=== PATIENT | male | born 1950 | race Caucasian/White ===

== ENCOUNTER 2019-06-24 06:14 | Inpatient (IN) ==
[~2019-06-24 06:14] MED LIST: Bacitracin 50,000 UNIT, Polymyxin B Sulfate 500,000 UNIT, Sodium Chloride IRRigation 1,... IR ONE
[2019-06-24] MEDS ORDERED: CeFAZolin Syr 2,000MG/20 ML 2,000 MG/20 ML SYRINGE IVPB ONE (06:46)
[2019-06-24] MEDS ORDERED: Ringers Solution, Lactated 1,000 ML IVC SCH (07:00)
[2019-06-24] MEDS ORDERED: Ondansetron 4 MG/2 ML VIAL ONE (07:02)
[2019-06-24] MEDS ORDERED: *HR* Succinylcholine 200 MG/10 ML VIAL IVP ONE (07:02)
[2019-06-24] MEDS ORDERED: Lidocaine -MPF 2% 2 ML VIAL ONE (07:02)
[2019-06-24] MEDS ORDERED: *HR* Propofol 200 MG/20 ML VIAL IVP ONE (07:03)
[2019-06-24] MEDS ORDERED: *HR* FentaNYL (PF) 100 MCG/2 ML VIAL ONE (07:03)
[2019-06-24] MEDS ORDERED: Dexamethasone 4 MG/ML VIAL ONE (07:10)
[2019-06-24] MEDS ORDERED: Lidocaine -MPF 4% 5 ML AMPUL ONE (07:10)
[2019-06-24] MEDS ORDERED: Dexmedetomidine HCl 400 MCG/100 ML MLS IVC ONE (07:29)
[2019-06-24] MEDS ORDERED: *HR* Magnesium Sulfate 1 GM/2 ML VIAL ONE (07:35)
[2019-06-24] MEDS ORDERED: Acetaminophen IV 1,000 MG/100 ML INFUS..BTL IVPB ONE (07:35)
[2019-06-24] MEDS ORDERED: *HR* HYDROmorphone PF 0.5 MG/0.5 ML SYRINGE IVP PRN (07:55)
[2019-06-24] MEDS ORDERED: *HR* Meperidine 25 MG/ML SYRINGE IVP PRN (07:55)
[2019-06-24] MEDS ORDERED: Ondansetron 4 MG/2 ML VIAL IVP ONE (07:55)
[2019-06-24] MEDS ORDERED: Lidocaine Jelly 6ml 1 APPL/6 ML JEL.PF.APP ONE (09:05)
[2019-06-24] MEDS ORDERED: *HR* Labetalol 20 MG/4 ML SYRINGE IVP ONE (10:04)
[2019-06-24] MEDS ORDERED: *HR* HYDROMORPHONE 2 MG/ML VIAL ONE (11:10)
[2019-06-24] MEDS ORDERED: Acetaminophen 325 MG TABLET PO PRN (15:29)
[2019-06-24] MEDS ORDERED: SEMAGLUTIDE 0.5 MG SQ SCH (15:29)
[2019-06-24] MEDS ORDERED: Ondansetron 4 MG/2 ML VIAL IVP PRN (15:29)
[2019-06-24] MEDS ORDERED: *HR* HYDROcodone/Acet 5/325 mg TABLET PO PRN (15:29)
[2019-06-24] MEDS ORDERED: Naloxone 0.4 MG/ML INJ IVP PRN (15:29)
[2019-06-24] MEDS ORDERED: Budesonide/Formoterol 160/4.5 1 PUFF INH IH PRN (15:29)
[2019-06-24] MEDS: Ringers Solution, Lactated 1,000 ML IVC SCH (15:30)
[2019-06-24] MEDS ORDERED: Dextrose Gel 15 GM/37.5 ML TUBE PO PRN ×2 (15:41)
[2019-06-24] MEDS ORDERED: D5% in Water 1,000 ML IVC PRN (15:41)
[2019-06-24] MEDS ORDERED: *HR* Dextrose 50 % in Water (Syg) 50 ML SYRINGE IVP PRN (15:41)
[2019-06-24] MEDS: ceFAZolin 2,000 MG in 0.9 % Sodium Chloride 100 ML IVPB SCH ×2 (17:50→23:48)
[2019-06-24] MEDS: Famotidine 20 MG TABLET PO SCH (17:50)
[2019-06-24] MEDS: Insulin LISPRO 300 UNITS/3 ML VIAL SQ SCH (17:51)
[2019-06-24] MEDS: *HR* OxyCODONE Immed Rel 5 MG TABLET PO PRN (18:16)
[2019-06-24] MEDS: Apixaban 5 MG TABLET PO SCH (19:31)
[2019-06-24] MEDS ORDERED: Insulin LISPRO 300 UNITS/3 ML VIAL SQ SCH (21:00)
[2019-06-24] MEDS ORDERED: NON-FORMULARY MEDICATION 1 EACH EACH (Insulin Aspart Prot/Insuln Asp [Novolog Mix 70-30 Fl SQ SCH (21:00)
[2019-06-24] MEDS ORDERED: traZODone 50 MG TABLET PO SCH (21:00)
[2019-06-24] MEDS: Insulin DETEMIR 100 UNIT/ML X5UNITS SQ SCH (21:29)
[2019-06-24] MEDS: Metoprolol 100 MG TABLET PO SCH (21:29)
[2019-06-24] MEDS: clonazePAM 0.5 MG TABLET PO SCH (21:29)
[2019-06-25] MEDS: Ringers Solution, Lactated 1,000 ML IVC SCH (02:18)
[2019-06-25] MEDS: Famotidine 20 MG TABLET PO SCH (06:06)
[2019-06-25] MEDS: *HR* OxyCODONE Immed Rel 5 MG TABLET PO PRN ×2 (06:09→14:07)
[2019-06-25] MEDS: Metoprolol 100 MG TABLET PO SCH (08:43)
[2019-06-25] MEDS: Apixaban 5 MG TABLET PO SCH (08:44)
[2019-06-25] MEDS: clonazePAM 0.5 MG TABLET PO SCH (08:44)
[2019-06-25] MEDS: Insulin LISPRO 300 UNITS/3 ML VIAL SQ SCH ×2 (08:45→12:46)
[2019-06-25] MEDS: Insulin DETEMIR 100 UNIT/ML X5UNITS SQ SCH (08:54)
[2019-06-25] MEDS ORDERED: Aspirin Enteric Coated 81 MG Tablet PO SCH (09:00)
[2019-06-25] MEDS ORDERED: hydroCHLOROthiazide 25 MG TABLET PO SCH (09:00)
[2019-06-25] MEDS ORDERED: Fluticasone Propionate Nasal 50 MCG/SPRAY BOTTLE NS SCH (09:00)
[2019-06-25 11:52] VITALS: BP 158/69
== END 2019-06-25 14:40 | disposition home or self-care (01) | DRG 472 ==
LOC: SAMDAY 06:14 → 3NENU 15:29
PROVIDERS: ADMIT Orthopaedic Surgery Orthopaedic Surgery of the Spine; ATTEND Orthopaedic Surgery Orthopaedic Surgery of the Spine
PROC: SPICORP (2019-06-24 08:15)

== ENCOUNTER 2021-05-09 13:57 | Inpatient (IN) ==
[2021-05-09] MEDS ORDERED: Melatonin 3 MG TABLET PO PRN (20:22)
[2021-05-09] MEDS ORDERED: Naloxone 0.4 MG/ML INJ IVP PRN (20:22)
[2021-05-09] MEDS ORDERED: Dextrose 4 GM Chewable Tablets PO PRN ×2 (20:27)
[2021-05-09] MEDS ORDERED: *HR* Dextrose 50 % in Water (Syg) 50 ML SYRINGE IVP PRN (20:27)
[2021-05-09] MEDS ORDERED: D5% in Water 1,000 ML IVC PRN (20:27)
[2021-05-09] MEDS: Ipratropium 1 PUFF INHALER IH SCH (20:50)
[2021-05-09] MEDS ORDERED: Insulin DETEMIR 100 UNIT/ML X5UNITS SUBQ SCH (21:00)
[2021-05-09] MEDS: traZODone 50 MG TABLET PO SCH (21:24)
[2021-05-09] MEDS: Apixaban 5 MG TABLET PO SCH (21:24)
[2021-05-09 21:58] LABS: Basophils % 0.3 %; Eosinophils # 0.1 K/mcL (0.0-0.6); Eosinophils % 0.7 %; Hematocrit 36.2 % (37.5-50.1); Hemoglobin 11.5 g/dL (12.9-16.9); Immature Granulocytes % 0.5 % (0-4); Lymphocytes # 0.7 K/mcL (0.6-4.6); Lymphocytes % 6.6 %; Mean Corpuscular HGB Conc 31.8 g/dL (31.6-35.5); Mean Corpuscular Hemoglobin 27.1 pg (28.0-33.3); Mean Corpuscular Volume 85.2 fL (83.0-100.0); Mean Platelet Volume 9.8 fL (9.4-12.4); Monocytes % 9.3 %; Neutrophils # 8.5 K/mcL (1.6-8.9); Platelet Count 278 K/mcL (140-400); Red Blood Count 4.25 M/mcL (4.19-5.50); Red Cell Distribution Width 13.6 % (11.5-14.5); Segmented Neutrophils % 82.6 %; White Blood Count 10.2 K/mcL (4.3-11.1)
[2021-05-09] MEDS: Insulin LISPRO 300 UNITS/3 ML VIAL SUBQ SCH (21:58)
[2021-05-09 22:02] LABS: VBG HCO3 18 mEq/L (21-27); VBG PCO2 36 mmHg (41-51); VBG PO2 115 mmHg (25-50)
[2021-05-09 22:06] LABS: INR 1.7; Prothrombin Time 18.6 Seconds (9.4-12.1)
[2021-05-09 22:18] LABS: C-Reactive Protein > 300 mg/L (Less than 10)
[2021-05-09 22:19] LABS: Albumin 3.3 g/dL (3.5-5.7); Bilirubin,Total 0.4 mg/dL (0.3-1.0); Calcium 7.9 mg/dL (8.6-10.3); Globulin 3.2 g/dL (2.4-3.5); Magnesium 3.3 mg/dL (1.6-2.6); Phosphorous 7.4 mg/dL (2.7-4.5); Potassium 6.3 mEq/L (3.5-5.1); Total Protein 6.5 g/dL (6.4-8.9)
[2021-05-09] MEDS ORDERED: SODIUM ZIRCONIUM CYCLOSILICATE 5 GM POWD.PACK PO SCH (23:00)
[2021-05-09] MEDS ORDERED: Vancomycin 1,750 MG in 0.9 % Sodium Chloride 250 ML IVPB SCH (23:00)
[2021-05-09 23:01] LABS: Bilirubin,Urine Negative (Negative); Blood,Urine Negative (Negative); Clarity,Urine Clear (Clear); Color,Urine Light-Yellow (Yellow); Glucose,Urine (UA) 50 mg/dL (Normal); Ketones,Urine Negative (Negative); Leukocyte Esterase,Urine Negative (Negative); Nitrite,Urine Negative (Negative); Protein,Urine 50 mg/dL (Neg-Trace); RBC,Urine 0-3 per hpf (0-3); Specific Gravity,Urine 1.011 (1.010-1.025); Urobilinogen,Urine Normal (Normal); WBC,Urine 0-3 per hpf (0-3)
[2021-05-09] MEDS: Dexamethasone Sodium Phos/PF 10 MG/ML VIAL IVP SCH (23:01)
[2021-05-10] MEDS: Cefepime HCl 1,000 MG in 0.9 % Sodium Chloride 10 ML IVP SCH ×2 (01:31→08:59)
[2021-05-10] MEDS ORDERED: Furosemide 20 MG/2 ML VIAL IVP ONE (01:54)
[2021-05-10] MEDS ORDERED: Insulin Human Regular 10 UNIT in 0.9 % Sodium Chloride 10 ML IV ONE (02:14)
[2021-05-10] MEDS ORDERED: *HR* Dextrose 50 % in Water (Syg) 50 ML SYRINGE IVP ONE (02:14)
[2021-05-10] MEDS: Ipratropium 1 PUFF INHALER IH SCH ×4 (03:58→20:15)
[2021-05-10 06:39] LABS: Basophils % 0.3 %; Eosinophils % 0.1 %; Hematocrit 33.7 % (37.5-50.1); Hemoglobin 10.6 g/dL (12.9-16.9); Lymphocytes # 0.5 K/mcL (0.6-4.6); Lymphocytes % 5.5 %; Mean Corpuscular HGB Conc 31.5 g/dL (31.6-35.5); Mean Corpuscular Hemoglobin 26.7 pg (28.0-33.3); Mean Corpuscular Volume 84.9 fL (83.0-100.0); Mean Platelet Volume 9.9 fL (9.4-12.4); Monocytes # 0.4 K/mcL (0.0-1.3); Monocytes % 4.1 %; Neutrophils # 8.4 K/mcL (1.6-8.9); Platelet Count 277 K/mcL (140-400); Red Blood Count 3.97 M/mcL (4.19-5.50); Red Cell Distribution Width 13.4 % (11.5-14.5); White Blood Count 9.4 K/mcL (4.3-11.1)
[2021-05-10 08:38] LABS: Calcium 7.5 mg/dL (8.6-10.3); Potassium 6.4 mEq/L (3.5-5.1)
[2021-05-10] MEDS: Insulin LISPRO 300 UNITS/3 ML VIAL SUBQ SCH ×5 (08:46→20:14)
[2021-05-10] MEDS: Dexamethasone Sodium Phos/PF 10 MG/ML VIAL IVP SCH (08:59)
[2021-05-10] MEDS: Apixaban 5 MG TABLET PO SCH ×2 (09:00→20:14)
[2021-05-10] MEDS ORDERED: SODIUM ZIRCONIUM CYCLOSILICATE 5 GM POWD.PACK PO SCH (10:00)
[2021-05-10] MEDS: SODIUM ZIRCONIUM CYCLOSILICATE 5 GM POWD.PACK PO SCH ×2 (12:52→16:36)
[2021-05-10] MEDS ORDERED: Sodium Bicarbonate 75 MEQ in D5% in Water 1,000 ML IVC ONE (13:45)
[2021-05-10] MEDS: Sodium Bicarbonate 75 MEQ in D5% in Water 1,000 ML IVC SCH ×2 (13:59→14:05)
[2021-05-10] MEDS ORDERED: Heparin 1,000 UNITS/500 mL 500 ML ONE (14:00)
[2021-05-10] MEDS ORDERED: 0.9 % Sodium Chloride 250 ML IVC PRN (14:21)
[2021-05-10] MEDS ORDERED: *HR* Heparin 10,000 UNIT/10 ML VIAL IV PRN (14:21)
[2021-05-10] MEDS ORDERED: 0.9 % Sodium Chloride 1,000 ML PRIME SCH (14:30)
[2021-05-10] MEDS ORDERED: *HR* Heparin 5,000 UNIT/ML VIAL ONE (14:37)
[2021-05-10 14:57] LABS: INR 1.5
[2021-05-10 15:31] LABS: Hepatitis B Surface Antibody < 3.10 mIU/mL
[2021-05-10 15:42] LABS: Hepatitis B Surface Antigen Nonreactive (Nonreactive)
[2021-05-10] MEDS: Ampicillin/Sulbactam 1,500 MG in 0.9 % Sodium Chloride Mini Bag 100 ML IVPB SCH (20:00)
[2021-05-10] MEDS: traZODone 50 MG TABLET PO SCH (20:15)
[2021-05-10] MEDS ORDERED: Cefepime HCl 1,000 MG in 0.9 % Sodium Chloride 10 ML IVP SCH (21:00)
[2021-05-10 21:57] LABS: Troponin I 0.03 ng/mL (< 0.04)
[2021-05-10] MEDS ORDERED: *HR* Meperidine 25 MG/ML SYRINGE IVP PRN (22:18)
[2021-05-11] MEDS ORDERED: *HR* Metoprolol 5 MG/5 ML VIAL IVP ONE (02:31)
[2021-05-11] MEDS: Ipratropium 1 PUFF INHALER IH SCH ×4 (03:51→19:43)
[2021-05-11] MEDS: Ampicillin/Sulbactam 1,500 MG in 0.9 % Sodium Chloride Mini Bag 100 ML IVPB SCH ×2 (05:55→17:10)
[2021-05-11 06:59] LABS: Basophils % 0.4 %; Hematocrit 32.4 % (37.5-50.1); Hemoglobin 10.4 g/dL (12.9-16.9); Lymphocytes # 0.6 K/mcL (0.6-4.6); Lymphocytes % 7.1 %; Mean Corpuscular HGB Conc 32.1 g/dL (31.6-35.5); Mean Corpuscular Hemoglobin 26.5 pg (28.0-33.3); Mean Corpuscular Volume 82.4 fL (83.0-100.0); Mean Platelet Volume 9.5 fL (9.4-12.4); Monocytes # 0.7 K/mcL (0.0-1.3); Monocytes % 7.6 %; Neutrophils # 7.1 K/mcL (1.6-8.9); Platelet Count 297 K/mcL (140-400); Red Blood Count 3.93 M/mcL (4.19-5.50); Red Cell Distribution Width 13.4 % (11.5-14.5); Segmented Neutrophils % 82.9 %; White Blood Count 8.6 K/mcL (4.3-11.1)
[2021-05-11 08:17] LABS: Calcium 7.9 mg/dL (8.6-10.3); Potassium 4.8 mEq/L (3.5-5.1)
[2021-05-11] MEDS ORDERED: Insulin DETEMIR 100 UNIT/ML X5UNITS SUBQ SCH (09:00)
[2021-05-11] MEDS: Dexamethasone Sodium Phos/PF 10 MG/ML VIAL IVP SCH (09:52)
[2021-05-11] MEDS: Apixaban 5 MG TABLET PO SCH ×2 (09:53→20:01)
[2021-05-11] MEDS: Insulin LISPRO 300 UNITS/3 ML VIAL SUBQ SCH ×4 (12:31→20:01)
[2021-05-11] MEDS: Insulin DETEMIR 100 UNIT/ML X5UNITS SUBQ SCH ×2 (12:31→20:01)
[2021-05-11] MEDS: traZODone 50 MG TABLET PO SCH (20:01)
[2021-05-12] MEDS ORDERED: Insulin LISPRO 300 UNITS/3 ML VIAL SUBQ ONE (00:38)
[2021-05-12] MEDS: Ampicillin/Sulbactam 1,500 MG in 0.9 % Sodium Chloride Mini Bag 100 ML IVPB SCH ×3 (05:44→23:17)
[2021-05-12 07:24] LABS: Calcium 8.1 mg/dL (8.6-10.3); Potassium 4.1 mEq/L (3.5-5.1)
[2021-05-12] MEDS: Apixaban 5 MG TABLET PO SCH ×2 (09:27→20:46)
[2021-05-12] MEDS: Dexamethasone Sodium Phos/PF 10 MG/ML VIAL IVP SCH (09:28)
[2021-05-12] MEDS: Insulin DETEMIR 100 UNIT/ML X5UNITS SUBQ SCH ×2 (09:29→21:08)
[2021-05-12] MEDS: Insulin LISPRO 300 UNITS/3 ML VIAL SUBQ SCH ×4 (09:30→20:49)
[2021-05-12 10:52] LABS: Basophils # 0.1 K/mcL (0.0-0.2); Basophils % 0.6 %; Hematocrit 33.2 % (37.5-50.1); Hemoglobin 10.8 g/dL (12.9-16.9); Lymphocytes # 0.7 K/mcL (0.6-4.6); Lymphocytes % 7.1 %; Mean Corpuscular HGB Conc 32.5 g/dL (31.6-35.5); Mean Platelet Volume 9.6 fL (9.4-12.4); Monocytes # 0.8 K/mcL (0.0-1.3); Monocytes % 8.4 %; Neutrophils # 7.6 K/mcL (1.6-8.9); Platelet Count 303 K/mcL (140-400); Red Cell Distribution Width 13.6 % (11.5-14.5); Segmented Neutrophils % 79.9 %; White Blood Count 9.5 K/mcL (4.3-11.1)
[2021-05-12] MEDS: traZODone 50 MG TABLET PO SCH (20:46)
[2021-05-13] MEDS: Ampicillin/Sulbactam 1,500 MG in 0.9 % Sodium Chloride Mini Bag 100 ML IVPB SCH ×3 (05:27→18:58)
[2021-05-13 06:29] LABS: Hematocrit 35.1 % (37.5-50.1); Hemoglobin 11.4 g/dL (12.9-16.9); Mean Corpuscular HGB Conc 32.5 g/dL (31.6-35.5); Mean Corpuscular Hemoglobin 27.2 pg (28.0-33.3); Mean Corpuscular Volume 83.8 fL (83.0-100.0); Mean Platelet Volume 9.3 fL (9.4-12.4); Platelet Count 287 K/mcL (140-400); Red Blood Count 4.19 M/mcL (4.19-5.50); Red Cell Distribution Width 13.6 % (11.5-14.5); White Blood Count 11.2 K/mcL (4.3-11.1)
[2021-05-13 06:33] LABS: BUN/Creatinine Ratio 41 (6-26); Blood Urea Nitrogen 55 mg/dL (8-23); Carbon Dioxide 31 mEq/L (23-29); Chloride 103 mEq/L (98-107); Glucose 319 mg/dL (70-105); Osmolality,Calculated 319 (280-300); Potassium 3.7 mEq/L (3.5-5.1); Sodium 141 mEq/L (136-145); eGFR For African Americans > 60 (> 60); eGFR For Non-African Americans 53 (> 60)
[2021-05-13 07:25] LABS: Lymphocytes # 0.9 K/mcL (0.6-4.6); Monocytes # 0.2 K/mcL (0.0-1.3); Neutrophils # 10.1 K/mcL (1.6-8.9); Platelet Estimate Normal (Normal)
[2021-05-13] MEDS: Dexamethasone Sodium Phos/PF 10 MG/ML VIAL IVP SCH (08:57)
[2021-05-13] MEDS: Insulin LISPRO 300 UNITS/3 ML VIAL SUBQ SCH ×4 (08:57→20:15)
[2021-05-13] MEDS: Apixaban 5 MG TABLET PO SCH ×2 (08:58→20:16)
[2021-05-13] MEDS: Insulin DETEMIR 100 UNIT/ML X5UNITS SUBQ SCH ×2 (09:03→20:16)
[2021-05-13] MEDS ORDERED: Budesonide/Formoterol 160/4.5 1 PUFF INH IH PRN (13:47)
[2021-05-13] MEDS: traZODone 50 MG TABLET PO SCH (20:16)
[2021-05-13] MEDS: Metoprolol 100 MG TABLET PO SCH (20:17)
[2021-05-13] MEDS: clonazePAM 0.5 MG TABLET PO SCH (20:17)
[2021-05-14] MEDS: Ampicillin/Sulbactam 1,500 MG in 0.9 % Sodium Chloride Mini Bag 100 ML IVPB SCH ×5 (00:11→23:52)
[2021-05-14 07:16] LABS: Basophils # 0.1 K/mcL (0.0-0.2); Basophils % 0.7 %; Eosinophils # 0.1 K/mcL (0.0-0.6); Eosinophils % 0.5 %; Hematocrit 34.3 % (37.5-50.1); Hemoglobin 11.4 g/dL (12.9-16.9); Immature Granulocytes % 4.7 % (0-4); Lymphocytes # 2.3 K/mcL (0.6-4.6); Lymphocytes % 18.8 %; Mean Corpuscular HGB Conc 33.2 g/dL (31.6-35.5); Mean Corpuscular Hemoglobin 27.6 pg (28.0-33.3); Mean Corpuscular Volume 83.1 fL (83.0-100.0); Mean Platelet Volume 8.8 fL (9.4-12.4); Monocytes # 0.8 K/mcL (0.0-1.3); Monocytes % 6.9 %; Neutrophils # 8.4 K/mcL (1.6-8.9); Platelet Count 236 K/mcL (140-400); Red Blood Count 4.13 M/mcL (4.19-5.50); Red Cell Distribution Width 13.3 % (11.5-14.5); Segmented Neutrophils % 68.4 %; White Blood Count 12.2 K/mcL (4.3-11.1)
[2021-05-14 07:43] LABS: BUN/Creatinine Ratio 39 (6-26); Blood Urea Nitrogen 47 mg/dL (8-23); Calcium 7.9 mg/dL (8.6-10.3); Carbon Dioxide 28 mEq/L (23-29); Chloride 106 mEq/L (98-107); Glucose 181 mg/dL (70-105); Osmolality,Calculated 309 (280-300); Potassium 3.4 mEq/L (3.5-5.1); Sodium 141 mEq/L (136-145); eGFR For African Americans > 60 (> 60); eGFR For Non-African Americans 60 (> 60)
[2021-05-14] MEDS: Aspirin Enteric Coated 81 MG Tablet PO SCH (08:56)
[2021-05-14] MEDS: Metoprolol 100 MG TABLET PO SCH ×2 (08:56→21:31)
[2021-05-14] MEDS: clonazePAM 0.5 MG TABLET PO SCH ×2 (08:56→21:31)
[2021-05-14] MEDS: Ascorbic Acid 500 MG TABLET PO SCH (08:57)
[2021-05-14] MEDS: Apixaban 5 MG TABLET PO SCH ×2 (08:57→21:31)
[2021-05-14] MEDS: Insulin LISPRO 300 UNITS/3 ML VIAL SUBQ SCH ×4 (08:59→21:31)
[2021-05-14] MEDS: Insulin DETEMIR 100 UNIT/ML X5UNITS SUBQ SCH ×2 (08:59→21:33)
[2021-05-14] MEDS: traZODone 50 MG TABLET PO SCH (21:31)
[2021-05-15 01:19] LABS: Basophils # 0.1 K/mcL (0.0-0.2); Basophils % 0.4 %; Eosinophils # 0.5 K/mcL (0.0-0.6); Eosinophils % 3.4 %; Hematocrit 34.7 % (37.5-50.1); Hemoglobin 11.3 g/dL (12.9-16.9); Immature Granulocytes % 3.8 % (0-4); Mean Corpuscular HGB Conc 32.6 g/dL (31.6-35.5); Mean Corpuscular Hemoglobin 27.2 pg (28.0-33.3); Mean Corpuscular Volume 83.4 fL (83.0-100.0); Mean Platelet Volume 9.1 fL (9.4-12.4); Monocytes # 0.8 K/mcL (0.0-1.3); Monocytes % 5.7 %; Neutrophils # 9.3 K/mcL (1.6-8.9); Platelet Count 229 K/mcL (140-400); Red Blood Count 4.16 M/mcL (4.19-5.50); Red Cell Distribution Width 13.3 % (11.5-14.5); Segmented Neutrophils % 65.7 %; White Blood Count 14.1 K/mcL (4.3-11.1)
[2021-05-15 01:32] LABS: BUN/Creatinine Ratio 29 (6-26); Blood Urea Nitrogen 38 mg/dL (8-23); Calcium 7.5 mg/dL (8.6-10.3); Carbon Dioxide 28 mEq/L (23-29); Chloride 103 mEq/L (98-107); Glucose 153 mg/dL (70-105); Osmolality,Calculated 300 (280-300); Potassium 3.4 mEq/L (3.5-5.1); Sodium 139 mEq/L (136-145); eGFR For African Americans > 60 (> 60); eGFR For Non-African Americans 54 (> 60)
[2021-05-15] MEDS: Ampicillin/Sulbactam 1,500 MG in 0.9 % Sodium Chloride Mini Bag 100 ML IVPB SCH ×4 (04:37→23:28)
[2021-05-15] MEDS: Insulin LISPRO 300 UNITS/3 ML VIAL SUBQ SCH ×4 (08:56→22:04)
[2021-05-15] MEDS: clonazePAM 0.5 MG TABLET PO SCH ×2 (09:12→20:57)
[2021-05-15] MEDS: Aspirin Enteric Coated 81 MG Tablet PO SCH (09:12)
[2021-05-15] MEDS: Ascorbic Acid 500 MG TABLET PO SCH (09:13)
[2021-05-15] MEDS: Metoprolol 100 MG TABLET PO SCH ×2 (09:13→20:57)
[2021-05-15] MEDS: Apixaban 5 MG TABLET PO SCH ×2 (09:13→20:57)
[2021-05-15] MEDS: Insulin DETEMIR 100 UNIT/ML X5UNITS SUBQ SCH ×2 (09:14→21:23)
[2021-05-15] MEDS: traZODone 50 MG TABLET PO SCH (20:57)
[2021-05-16 03:58] LABS: Basophils % 0.3 %; Eosinophils # 0.7 K/mcL (0.0-0.6); Eosinophils % 5.7 %; Hematocrit 33.6 % (37.5-50.1); Hemoglobin 10.8 g/dL (12.9-16.9); Immature Granulocytes % 2.6 % (0-4); Lymphocytes # 1.8 K/mcL (0.6-4.6); Lymphocytes % 15.7 %; Mean Corpuscular HGB Conc 32.1 g/dL (31.6-35.5); Mean Corpuscular Hemoglobin 26.9 pg (28.0-33.3); Mean Corpuscular Volume 83.8 fL (83.0-100.0); Mean Platelet Volume 9.3 fL (9.4-12.4); Monocytes # 0.8 K/mcL (0.0-1.3); Monocytes % 6.7 %; Platelet Count 203 K/mcL (140-400); Red Blood Count 4.01 M/mcL (4.19-5.50); Red Cell Distribution Width 13.2 % (11.5-14.5); White Blood Count 11.6 K/mcL (4.3-11.1)
[2021-05-16 04:19] LABS: Calcium 7.5 mg/dL (8.6-10.3); Potassium 3.6 mEq/L (3.5-5.1)
[2021-05-16] MEDS: Ampicillin/Sulbactam 1,500 MG in 0.9 % Sodium Chloride Mini Bag 100 ML IVPB SCH ×3 (06:15→19:19)
[2021-05-16] MEDS: clonazePAM 0.5 MG TABLET PO SCH ×2 (08:32→21:00)
[2021-05-16] MEDS: Insulin LISPRO 300 UNITS/3 ML VIAL SUBQ SCH ×4 (08:32→21:01)
[2021-05-16] MEDS: Metoprolol 100 MG TABLET PO SCH ×2 (08:33→21:01)
[2021-05-16] MEDS: Apixaban 5 MG TABLET PO SCH ×2 (08:33→21:00)
[2021-05-16] MEDS: Aspirin Enteric Coated 81 MG Tablet PO SCH (08:33)
[2021-05-16] MEDS: Ascorbic Acid 500 MG TABLET PO SCH (08:33)
[2021-05-16] MEDS: Insulin DETEMIR 100 UNIT/ML X5UNITS SUBQ SCH ×2 (08:45→21:01)
[2021-05-16] MEDS: traZODone 50 MG TABLET PO SCH (21:00)
[2021-05-17 07:29] LABS: Basophils % 0.2 %; Eosinophils # 0.5 K/mcL (0.0-0.6); Eosinophils % 4.4 %; Hematocrit 33.6 % (37.5-50.1); Hemoglobin 10.8 g/dL (12.9-16.9); Immature Granulocytes % 1.5 % (0-4); Lymphocytes # 1.3 K/mcL (0.6-4.6); Lymphocytes % 12.3 %; Mean Corpuscular HGB Conc 32.1 g/dL (31.6-35.5); Mean Corpuscular Hemoglobin 26.7 pg (28.0-33.3); Mean Corpuscular Volume 83.2 fL (83.0-100.0); Mean Platelet Volume 9.8 fL (9.4-12.4); Monocytes # 0.9 K/mcL (0.0-1.3); Platelet Count 194 K/mcL (140-400); Red Blood Count 4.04 M/mcL (4.19-5.50); Red Cell Distribution Width 13.5 % (11.5-14.5); Segmented Neutrophils % 73.6 %; White Blood Count 10.8 K/mcL (4.3-11.1)
[2021-05-17] MEDS: Insulin LISPRO 300 UNITS/3 ML VIAL SUBQ SCH ×3 (07:30→21:00)
[2021-05-17 07:56] LABS: BUN/Creatinine Ratio 19 (6-26); Blood Urea Nitrogen 24 mg/dL (8-23); Calcium 7.6 mg/dL (8.6-10.3); Carbon Dioxide 25 mEq/L (23-29); Chloride 106 mEq/L (98-107); Glucose 112 mg/dL (70-105); Osmolality,Calculated 289 (280-300); Potassium 3.9 mEq/L (3.5-5.1); Sodium 137 mEq/L (136-145); eGFR For African Americans > 60 (> 60); eGFR For Non-African Americans 58 (> 60)
[2021-05-17] MEDS: Insulin DETEMIR 100 UNIT/ML X5UNITS SUBQ SCH ×2 (08:00→20:47)
[2021-05-17] MEDS: Apixaban 5 MG TABLET PO SCH ×2 (12:21→20:47)
[2021-05-17] MEDS: Metoprolol 100 MG TABLET PO SCH ×2 (12:21→20:47)
[2021-05-17] MEDS: Aspirin Enteric Coated 81 MG Tablet PO SCH (12:21)
[2021-05-17] MEDS: Ascorbic Acid 500 MG TABLET PO SCH (12:22)
[2021-05-17] MEDS: clonazePAM 0.5 MG TABLET PO SCH ×2 (12:22→20:46)
[2021-05-17] MEDS: traZODone 50 MG TABLET PO SCH (20:47)
[2021-05-18] MEDS: Insulin DETEMIR 100 UNIT/ML X5UNITS SUBQ SCH ×2 (07:30→21:11)
[2021-05-18] MEDS: Aspirin Enteric Coated 81 MG Tablet PO SCH (13:25)
[2021-05-18] MEDS: Apixaban 5 MG TABLET PO SCH ×2 (13:25→21:03)
[2021-05-18] MEDS: Metoprolol 100 MG TABLET PO SCH ×2 (13:26→21:02)
[2021-05-18] MEDS: clonazePAM 0.5 MG TABLET PO SCH ×2 (13:26→21:02)
[2021-05-18] MEDS: Ascorbic Acid 500 MG TABLET PO SCH (13:26)
[2021-05-18] MEDS: traZODone 50 MG TABLET PO SCH (21:02)
[2021-05-18] MEDS: Insulin LISPRO 300 UNITS/3 ML VIAL SUBQ SCH (21:03)
[2021-05-19] MEDS: Insulin LISPRO 300 UNITS/3 ML VIAL SUBQ SCH ×4 (01:17→08:32)
[2021-05-19 07:58] VITALS: PULSE 75; TEMP 98.6
[2021-05-19] MEDS: Metoprolol 100 MG TABLET PO SCH (08:31)
[2021-05-19] MEDS: Ascorbic Acid 500 MG TABLET PO SCH (08:31)
[2021-05-19] MEDS: clonazePAM 0.5 MG TABLET PO SCH (08:31)
[2021-05-19] MEDS: Apixaban 5 MG TABLET PO SCH (08:31)
[2021-05-19] MEDS: Aspirin Enteric Coated 81 MG Tablet PO SCH (08:31)
[2021-05-19] MEDS: Insulin DETEMIR 100 UNIT/ML X5UNITS SUBQ SCH (08:41)
[2021-05-19 22:41] VITALS: BP 135/95; O2SAT 93
== END 2021-05-19 11:20 | DRG 177 ==
LOC: 2ANU → SUATTDRO 20:25 → 2NNU 05-10 02:51 → 2ANU 05-11 13:07 → 3NENU 05-11 15:27
PROVIDERS: ADMIT Hospitalist; ATTEND Internal Medicine